=== PATIENT | female | born 1980 | race Caucasian/White ===

== ENCOUNTER → 2016-09-10 | Outpatient (CLI) | payer OTHER | LOC: KOH-I 11:46 | DX: S69.90XA Unspecified injury of unspecified wrist, hand and finger(s), initial encounter (principal) | CPT/HCPCS: 73110; 73130 ==

== ENCOUNTER 2020-10-07 09:36 | Emergency (ER) | payer SELFPAY ==
[~2020-10-07 09:36] MED LIST: CLEOCIN HCL300 MG PO
[2020-10-07] MEDS ORDERED: CYCLOBENZAPRINE10 MG PO (14:28)
[2020-10-07] MEDS ORDERED: NAPROSYN500 MG PO (14:28)
== END 2020-10-07 15:00 | disposition home or self-care (01) ==
LOC: ER1 09:36
DX: S16.1XXA Strain of muscle, fascia and tendon at neck level, initial encounter (principal); S39.012A Strain of muscle, fascia and tendon of lower back, initial encounter; Z88.2 Allergy status to sulfonamides; Z88.1 Allergy status to other antibiotic agents; Z88.8 Allergy status to other drugs, medicaments and biological substances; V49.40XA Driver injured in collision with unspecified motor vehicles in traffic accident, initial encounter; Y92.410 Unspecified street and highway as the place of occurrence of the external cause
CPT/HCPCS: 72125; 72131; 96372; 99283; J1885

== ENCOUNTER 2021-08-17 17:44 | Observation (INO) | payer MEDICAID ==
[~2021-08-17] VITALS: Ht 165.1 cm; Wt 122.5 kg
[~2021-08-17 17:44] MED LIST changes: +CYCLOBENZAPRINE10 MG PO; +NAPROSYN500 MG PO
[2021-08-17 18:25] LABS: HEMOGLOBIN 13.5 gm/dl (12.3-15.3); RED BLOOD COUNT 4.62 M/UL (4.00-5.10); WHITE BLOOD COUNT 14.6 K/UL (4.5-11.0)
[2021-08-17 18:50] LABS: BUN/CREATININE RATIO 12 (0-10)
[2021-08-18 03:04] LABS: HEMOGLOBIN 11.9 gm/dl (12.3-15.3); WHITE BLOOD COUNT 11.9 K/UL (4.5-11.0)
[2021-08-18 03:05] LABS: RED BLOOD COUNT 4.1 M/UL (4.00-5.10)
[2021-08-18 03:27] LABS: BUN/CREATININE RATIO 13 (0-10)
--- NOTE | 2021-08-18 12:33 | NUR ---
RECEIVED FROM [facility] TRANSFER VIA W/C TO 5105. AAOX3. NO DISTRESS NOTED. DENIES C/O PAIN OR DISCOMFORT. WCTM.
[2021-08-19 03:26] LABS: BUN/CREATININE RATIO 12 (0-10)
[2021-08-19] MEDS ORDERED: CEFUROXIME500 MG PO (14:39)
[2021-08-19] MEDS ORDERED: HYDROCHLOROTHIA25 MG PO (14:49)
== END 2021-08-19 16:11 | disposition home or self-care (01) ==
LOC: ER1 17:44 → PROG CARE 20:17 → M/S 20:17 → CDU 20:17 → M/S 20:17 → PROG CARE 22:20 → M/S 08-18 12:15
PROVIDERS: Emergency Medicine; Internal Medicine; ADMIT Internal Medicine
DX: N39.0 Urinary tract infection, site not specified (principal); B96.20 Unspecified Escherichia coli [E. coli] as the cause of diseases classified elsewhere; E87.6 Hypokalemia; U07.1 COVID-19; I10 Essential (primary) hypertension; G40.909 Epilepsy, unspecified, not intractable, without status epilepticus; Z88.0 Allergy status to penicillin; Z88.2 Allergy status to sulfonamides; Z88.5 Allergy status to narcotic agent; Z88.6 Allergy status to analgesic agent
CPT/HCPCS: 36415; 80048; 80053; 80061; 81001; 82533; 82550; 82553; 83036; 83605; 83690; 83735; 84439; 84443; 84484; 84703; 85025; 87040; 87077; 87086; 87186; 93005; 96366; 96367; 96372; 96374; 96375; 96376; 99285; G0378; J0696; J1650; J2270; J2405; J2543; U0002